=== PATIENT | male | born 1965 | race Two or more races ===

== ENCOUNTER 2018-01-24 08:45 | Emergency (ER) | payer MEDICAID ==
--- NOTE | 2018-01-24 09:47 | EDPHY ---
General Time Seen by Provider: 01/24/18 09:38 Narrative: CHIEF COMPLAINT: right leg pain HISTORY OF PRESENT ILLNESS: Patient complains of pain in his right lower extremity at his surgical site. 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 He has had ongoing problems with wounds of the surgical stump. He says that over the past week he has had increasing pain in the sites of wound. Rated as a 10/10 at times. He has also had bleeding from the wounds. Difficulty using his prosthetic due to pain and bleeding. He has had no fever. No chills. He has a significant history for right lower extremity osteomyelitis. He was diagnosed and treated at [facility] in the part december. This was inpatient for several days and then discharged home on the . He return to them on the 05 of January due to inability to tolerate his medications. He was admitted for 24 hr discharged home on doxycycline. He has been taking this as prescribed the entire time since January 05. He feels this is more related to the wound and not infection. He also has right knee pain itself. Difficulty using the prosthetic from this. No radiating pain. No numbness. No other associated complaints or modifying factors. REVIEW OF SYSTEMS: Ten systems reviewed and are negative unless otherwise noted in the HPI PCP: Teresa Peterson SPECIALISTS: Wound care Dr. Coyne PAST MEDICAL HISTORY: Insulin-dependent diabetic, dyslipidemia, anxiety, depression PAST SURGICAL HISTORY: Right BKA July 2017 at [facility] SOCIAL HISTORY: Nonsmoker. Currently homeless. FAMILY HISTORY: Noncontributory EXAMINATION General Appearance: Alert, no distress. Well-developed well-nourished. Head: normocephalic, atraumatic Eyes: Pupils equal and round, no conjunctival pallor or injection ENT, Mouth: Mucous membranes moist Neck: Normal inspection, supple, non-tender Respiratory: Lungs are clear to auscultation. No wheezing, rhonchi or crackles Cardiovascular: Regular rate and rhythm. No murmur. Radial pulses symmetric. Left DP pulses 2+. There is a palpable right popliteal pulse. Good signs of perfusion to the right BKA stump. Gastrointestinal: Abdomen is soft and nontender Back: non-tender, no bony abnormalities Neurological: A&O, nonfocal, strength is symmetric in the upper extremities. Light sensation is symmetric to the lower portion of the extremities. Skin: Warm and dry, no rash. There is a well-healed surgical incision on the right BKA stump. There are 2 areas of diabetic ulceration. The 1st is laterally measuring 3 cm. No desquamation. No cellulitis. No fluctuance or necrosis. There is a smaller dependent area to the medial side of the BKA stump. This is less than 2 cm. No signs of infection. Extremities: Tenderness of the right BKA stump over the ulcerations. Psychiatric: Mood and affect normal DIFFERENTIAL DIAGNOSES: Including but not limited to osteomyelitis, cellulitis, stasis ulcer, diabetic ulcer, chronic wound MDM: 9:45 a.m. Pain in right lower extremity and area of BKA surgical site. He does have small areas of wound that do appear painful but do not appear to be infected. I do not appreciate any cellulitis or abscess. There is no necrosis, dehiscence or crepitus. The remainder of the extremities intact without signs of infection. His vital signs are within normal limits. We are currently obtaining his recent medical record. We are providing pain medication. I have ordered laboratory studies and x-rays of the leg. I have a very low clinical suspicion for infection, even less so for osteomyelitis. Patient will likely need assistance with wound care. Case management has been involved. 10:25 a.m. Notified by RN that the patient is reporting that he has had no relief of his pain. At this time he does not have an IV, so I have ordered intramuscular morphine for pain. 10:45 a.m. Notified of patient's blood to for rejected. IV was then successfully placed in the now has access. We will switch the intramuscular morphine 2 IV. His labs are now currently pending. 11:00 a.m. I reviewed the case with Dr. Rodríguez. 11:30 a.m. I have reviewed the recent hospital notes from patient's stay at [facility]. There are 36 pages of documentation from his most recent stay. He was diagnosed with osteomyelitis. He was treated for several days with IV vancomycin and changed to doxycycline due to intolerance to the medication. He was discharged home on doxycycline and has been taking this twice daily as prescribed. He has the remainder of the prescription in hand. He does have some ulceration of the BKA stump, but no signs of cellulitis, osteomyelitis or abscess. His x-ray is unremarkable. His vital signs were well within normal limits with no evidence of SIRS or sepsis. He is not vomiting or acutely ill otherwise. I do feel he is stable for discharge home. We will provide crutches for him as he has difficulty wearing has prosthetic. Will provide wound care here. He informs me that he has wound care follow up with Dr. Coyne in 2 weeks. He will contact her to expedite his visit. He will follow up at [facility] as previously instructed. He will return here for any worsening symptoms, fever or intolerance of medications. He is comfortable with this plan and discharged home stable condition. SUPERVISION: Patient was independently examined, but I discussed the case with my secondary supervising physician Dr. Rodríguez - Diagnostics Imaging Results: Imaging Impressions Knee X-Ray 01/24/18 09:47 Impression: No evidence for osteomyelitis involving the BK amputation stump. - History Smoking Status: Never smoked - Objective Vital Signs: Initial Vital Signs Temperature (C) 97.7 F 01/24/18 08:50 Heart Rate 97 01/24/18 08:50 Respiratory Rate 20 01/24/18 08:50 Blood Pressure 127/75 H 01/24/18 08:50 O2 Sat (%) 95 01/24/18 08:50 O2 Delivery Mode Room Air Allergies/Adverse Reactions: No Known Allergies Allergy (Unverified 01/24/18 08:49) Home Medications: Medication Instructions Recorded Aspirin 06/01/16 Cephalexin [Keflex] 750 mg PO 06/01/16 Humalog 06/01/16 Hydrocodone/Acetaminophen [[place] 1 - 2 tab PO Q4H PRN 06/01/16 5/325 (*)] Insulin Glargine [Lantus 100 06/01/16 UNITS/ML (*)] LORazepam [Ativan] 0.5 mg PO 06/01/16 Plavix 06/01/16 Simvastatin 06/01/16 Fish Oil 08/19/16 Levemir 08/19/16 Melatonin 08/19/16 VENLAFAXINE HCL 08/19/16 oxyCODONE HCL/ACETAMINOPHEN 1 each PO Q4-6PRN PRN #11 tablet 01/24/18 [Percocet 5-325 mg Tablet] Laboratory Results: Laboratory Results 01/24/18 10:42 01/24/18 10:42 01/24/18 01/24/18 01/24/18 10:42 10:42 10:10 WBC 11.63 10^3/uL H 10^3/uL (3.80-9.50) RBC 4.56 10^6/uL 10^6/uL (4.40-6.38) Hgb 13.1 g/dL L g/dL (13.7-17.5) Hct 39.4 % L % (40.0-51.0) MCV 86.4 fL fL (81.5-99.8) MCH 28.7 pg pg (27.9-34.1) MCHC 33.2 g/dL g/dL (32.4-36.7) RDW 13.4 % % (11.5-15.2) Plt Count 303 10^3/uL 10^3/uL (150-400) MPV 10.6 fL fL (8.7-11.7) Neut % (Auto) 77.9 % H % (39.3-74.2) Lymph % (Auto) 15.1 % % (15.0-45.0) [place] % (Auto) 4.5 % % (4.5-13.0) Eos % (Auto) 1.6 % % (0.6-7.6) Baso % (Auto) 0.4 % % (0.3-1.7) Nucleat RBC Rel Count 0.0 % % (0.0-0.2) Absolute Neuts (auto) 9.05 10^3/uL H 10^3/uL (1.70-6.50) Absolute Lymphs (auto) 1.76 10^3/uL 10^3/uL (1.00-3.00) Absolute Monos (auto) 0.52 10^3/uL 10^3/uL (0.30-0.80) Absolute Eos (auto) 0.19 10^3/uL 10^3/uL (0.03-0.40) Absolute Basos (auto) 0.05 10^3/uL 10^3/uL (0.02-0.10) Absolute Nucleated RBC 0.00 10^3/uL 10^3/uL (0-0.01) Immature Gran % 0.5 % % (0.0-1.1) Immature Gran # 0.06 10^3/uL 10^3/uL (0.00-0.10) ESR 26 MM/HR H MM/HR (0-20) Sodium 138 mEq/L mEq/L REJ (135-145) Potassium 4.6 mEq/L mEq/L REJ (3.5-5.2) Chloride 99 mEq/L mEq/L REJ (97-110) Carbon Dioxide 25 mEq/l mEq/l REJ (22-31) Anion Gap 14 mEq/L mEq/L REJ (8-16) BUN 20 mg/dL mg/dL REJ (7-23) Creatinine 0.7 mg/dL mg/dL REJ (0.7-1.3) Estimated GFR > 60 REJ Glucose 248 mg/dL H mg/dL REJ (70-100) Calcium 9.0 mg/dL mg/dL REJ (8.5-10.4) C-Reactive Protein 8.4 mg/L mg/L REJ (<10.0) 01/24/18 10:10 WBC REJ RBC TNP Hgb TNP Hct TNP MCV TNP MCH TNP MCHC TNP RDW TNP Plt Count TNP MPV TNP Neut % (Auto) TNP Lymph % (Auto) TNP [place] % (Auto) TNP Eos % (Auto) TNP Baso % (Auto) TNP Nucleat RBC Rel Count TNP Absolute Neuts (auto) TNP Absolute Lymphs (auto) TNP Absolute Monos (auto) TNP Absolute Eos (auto) TNP Absolute Basos (auto) TNP Absolute Nucleated RBC TNP Immature Gran % TNP Immature Gran # TNP ESR TNP Sodium Potassium Chloride Carbon Dioxide Anion Gap BUN Creatinine Estimated GFR Glucose Calcium C-Reactive Protein Medications Given: Discontinued Medications Morphine Sulfate (Morphine) 6 mg IM EDNOW ONE Stop: 01/24/18 10:26 Last Admin: 01/24/18 10:49 Dose: Not Given Morphine Sulfate (Morphine) 4 mg IVP EDNOW ONE Stop: 01/24/18 10:42 Last Admin: 01/24/18 10:47 Dose: 4 mg Oxycodone/Acetaminophen (Percocet 5/325) 2 tab PO EDNOW ONE Stop: 01/24/18 09:52 Last Admin: 01/24/18 09:58 Dose: 2 tab Departure - Departure Disposition: Home, Routine, Self-Care Clinical Impression: Diabetic ulcer of lower leg Osteomyelitis Qualifiers: Osteomyelitis type: unspecified type Osteomyelitis location: unspecified site Qualified Code(s): M86.9 - Osteomyelitis, unspecified Condition: Good Instructions: Osteomyelitis (ED), Diabetes and Your Skin (ED), Chronic Wounds ( ED), Acute Wounds (ED) Additional Instructions: 1. Continue your previously prescribed antibiotics to completion 2. Pain medication as prescribed as needed 3. Recommend close monitoring of blood glucose with your scheduled an insulin sliding schedule dosing. 4. Recommend follow up with Teresa for tighter glucose management 5. ED precautions for worsening pain, fever, dehiscence of the wound, bleeding, purulence Referrals: Suly Lima PA [Primary Care Provider] - As per Instructions [facility] [Clinic] - As per Instructions Prescriptions: oxyCODONE HCL/ACETAMINOPHEN [Percocet 5-325 mg Tablet] 1 each PO Q4-6PRN PRN # 11 tablet PRN Reason: Pain, Breakthrough
[2018-01-24] MEDS ORDERED: OXYCODONE/APAP 5/325 TAB PO ONE (09:51)
[2018-01-24 10:51] LABS: PLATELET COUNT 303 10^3/uL (150-400)
[2018-01-24 12:18] VITALS: BP 128/78
--- NOTE | 2018-01-24 13:41 | ASMTCMCOM ---
CM Note CM Note Notes: Patient presents to the ER with c/o pain and difficulty ambulating with his RLE and prosthetic (see ER report for details). I have met with patient who is accompanied by a friend that brought him to the hospital. Patient explains that he is currently staying in the [facility] and entered through the coordinated entry program. His PCP is Dr. Suly Davila with [facility] in [place] and his next appointment is scheduled in January. In addition, patient states that he sees Dr. Coyne in [place] for his wound care needs related to his R leg and prosthetic. He has a scheduled appointment with Dr. Coyne on February 06, 2018 Patient was given a prescription for pain medication and has been instructed to follow up with his PCP for follow up and/or any refills. Date Signed: 01/24/2018 01:40 PM Electronically Signed By:Susie Douglas RN
== END 2018-01-24 12:18 | disposition home or self-care (01) ==
DX: E11.622 Type 2 diabetes mellitus with other skin ulcer (principal); M86.9 Osteomyelitis, unspecified; L97.919 Non-pressure chronic ulcer of unspecified part of right lower leg with unspecified severity; Z79.82 Long term (current) use of aspirin; Z79.4 Long term (current) use of insulin
CPT/HCPCS: 96374; J2270

== ENCOUNTER 2018-07-23 17:27 | Emergency (ER) | payer SELFPAY ==
--- NOTE | 2018-07-23 17:36 | EDPHY ---
H & P Stated Complaint: Fatigue Time Seen by Provider: 07/23/18 17:36 HPI/ROS: CHIEF COMPLAINT: Fatigue HISTORY OF PRESENT ILLNESS: The patient is a homeless type 1 diabetic who presents to the ED with a 1 day history of fatigue and reported slight confusion. The patient reports he has had slightly elevated blood sugars over the past several days. Past medical history is significant for a recent hospitalization at [facility] for a left foot ulcer. The patient also had a myocardial infarction approximately 2 months ago and is status post a stent in his heart as well as his left leg. The patient denies any chest pain. He did have some slight discomfort in his left shoulder earlier today. REVIEW OF SYSTEMS: A comprehensive 10 point review of systems is otherwise negative aside from elements mentioned in the history of present illness. Source: Patient Exam Limitations: No limitations - Personal History Tetanus Vaccine Date: < 10 years - Medical/Surgical History Hx Asthma: No Hx Chronic Respiratory Disease: No Hx Diabetes: Yes Hx Cardiac Disease: No Hx Renal Disease: No Hx Cirrhosis: No Hx Alcoholism: No Hx HIV/AIDS: No Hx Splenectomy or Spleen Trauma: No Other PMH: Type1 DM, hyperlipidemia, anxiety, right BKA - Social History Smoking Status: Never smoked - Physical Exam Exam: General Appearance: Alert, no distress Eyes: Pupils equal and round no pallor or injection ENT, Mouth: Mucous membranes moist Respiratory: There are no retractions, lungs are clear to auscultation Cardiovascular: Regular rate and rhythm Gastrointestinal: Abdomen is soft and nontender, no masses, bowel sounds normal Neurological: A&O, normal motor function, normal sensory exam, normal cranial nerves Skin: Warm and dry, no rashes Musculoskeletal: Neck is supple nontender Extremities: Right BKA, left lower extremity demonstrates a chronic lateral right foot ulcer without evidence of an active infection Psychiatric: Patient is oriented X 3, there is no agitation Constitutional: Initial Vital Signs Temperature (C) 36.6 C 07/23/18 17:32 Heart Rate 79 07/23/18 17:32 Respiratory Rate 18 07/23/18 17:32 Blood Pressure 106/59 L 07/23/18 17:32 O2 Sat (%) 96 07/23/18 17:32 O2 Delivery Mode Room Air Allergies/Adverse Reactions: No Known Allergies Allergy (Unverified 01/24/18 08:49) Home Medications: Medication Instructions Recorded Aspirin 06/01/16 Humalog 06/01/16 Insulin Glargine [Lantus 100 06/01/16 UNITS/ML (*)] Plavix 06/01/16 Simvastatin 06/01/16 Levemir 08/19/16 VENLAFAXINE HCL 08/19/16 Medical Decision Making - Diagnostics EKG Interpretation: EKG: Complete interpretation has been separately recorded in the [email or web address]ster archive. Summary impression: Sinus rhythm, rate 73 evidence of old inferior infarct, no ST segment elevation. ED Course/Re-evaluation: The patient presents to the ED with vague symptoms of feeling fatigued. He has no chest pain, shortness of breath, fever, cough or congestion. The patient does have a slightly elevated blood sugar but no evidence of diabetic ketoacidosis. The patient also had slight dehydration with a mildly elevated creatinine of 1.8. Patient was treated with IV fluid rehydration. I reviewed the patient's workup in the emergency department. At this point time I do feel his symptoms are likely consistent with mild dehydration. The patient will increase his fluid intake. I have asked him to follow up with his primary care provider in a week for a creatinine recheck. The patient will be discharged home with instructions to return to the ED for markedly worsening symptoms or other concerns. He has no evidence of acute coronary syndrome or evidence of a significant metabolic derangement in the emergency department. He has no clinical evidence of significant infection. Differential Diagnosis: Differential diagnosis considered includes acute coronary syndrome, dehydration , infection, diabetic ketoacidosis - Data Points Laboratory Results: Laboratory Results 07/23/18 Unknown 07/23/18 17:38 07/23/18 07/23/18 07/23/18 Unknown 18:00 17:38 WBC 10.41 10^3/uL H 10^3/uL (3.80-9.50) RBC 4.03 10^6/uL L 10^6/uL (4.40-6.38) Hgb 11.9 g/dL L g/dL (13.7-17.5) Hct 34.2 % L % (40.0-51.0) MCV 84.9 fL fL (81.5-99.8) MCH 29.5 pg pg (27.9-34.1) MCHC 34.8 g/dL g/dL (32.4-36.7) RDW 13.4 % % (11.5-15.2) Plt Count 306 10^3/uL 10^3/uL (150-400) MPV 10.8 fL fL (8.7-11.7) Neut % (Auto) 74.9 % H % (39.3-74.2) Lymph % (Auto) 16.8 % % (15.0-45.0) [place] % (Auto) 6.6 % % (4.5-13.0) Eos % (Auto) 0.9 % % (0.6-7.6) Baso % (Auto) 0.4 % % (0.3-1.7) Nucleat RBC Rel Count 0.0 % % (0.0-0.2) Absolute Neuts (auto) 7.80 10^3/uL H 10^3/uL (1.70-6.50) Absolute Lymphs (auto) 1.75 10^3/uL 10^3/uL (1.00-3.00) Absolute Monos (auto) 0.69 10^3/uL 10^3/uL (0.30-0.80) Absolute Eos (auto) 0.09 10^3/uL 10^3/uL (0.03-0.40) Absolute Basos (auto) 0.04 10^3/uL 10^3/uL (0.02-0.10) Absolute Nucleated RBC 0.00 10^3/uL 10^3/uL (0-0.01) Immature Gran % 0.4 % % (0.0-1.1) Immature Gran # 0.04 10^3/uL 10^3/uL (0.00-0.10) VBG pH Sodium 133 mEq/L L mEq/L (135-145) Potassium 4.9 mEq/L mEq/L (3.3-5.0) Chloride 96 mEq/L L mEq/L (97-110) Carbon Dioxide 22 mEq/l mEq/l (22-31) Anion Gap 15 mEq/L mEq/L (8-16) BUN 32 mg/dL H mg/dL (7-23) Creatinine 1.8 mg/dL H mg/dL (0.7-1.3) Estimated GFR 40 Glucose 305 mg/dL H mg/dL (70-100) Calcium 9.5 mg/dL mg/dL (8.5-10.4) POC Troponin I 0.01 ng/mL ng/mL (0.00-0.08) 07/23/18 17:30 WBC RBC Hgb Hct MCV MCH MCHC RDW Plt Count MPV Neut % (Auto) Lymph % (Auto) [place] % (Auto) Eos % (Auto) Baso % (Auto) Nucleat RBC Rel Count Absolute Neuts (auto) Absolute Lymphs (auto) Absolute Monos (auto) Absolute Eos (auto) Absolute Basos (auto) Absolute Nucleated RBC Immature Gran % Immature Gran # VBG pH 7.33 (7.31-7.42) Sodium Potassium Chloride Carbon Dioxide Anion Gap BUN Creatinine Estimated GFR Glucose Calcium POC Troponin I Medications Given: Discontinued Medications Sodium Chloride (Ns) 1,000 mls @ 0 mls/hr IV EDNOW ONE; Wide Open PRN Reason: Protocol Stop: 07/23/18 18:22 Last Admin: 07/23/18 18:33 Dose: 1,000 mls Point of Care Test Results: Chemistry 07/23/18 18:00 POC Troponin I 0.01 ng/mL ng/mL (0.00-0.08) Departure - Departure Disposition: Home, Routine, Self-Care Clinical Impression: Fatigue, Dehydration Condition: Good Instructions: Dehydration (ED) Additional Instructions: 1. Please try and increase your fluid intake as mild dehydration likely contributed to your symptoms today. 2. Please schedule a [facility] for a recheck of your kidney function in 1 week. 3. Please return to the ED for markedly worsening symptoms, fever, chest pain, difficulty breathing, increased pain, redness or other concerns. Referrals: [facility],. [Clinic] - As per Instructions
[2018-07-23 18:01] LABS: PLATELET COUNT 306 10^3/uL (150-400)
[2018-07-23] MEDS ORDERED: NS 1,000 ML IV ONE (18:21)
[2018-07-23] MEDS: NS 1,000 ML IV ONE ×3 (18:33→19:17)
--- NOTE | 2018-07-23 18:51 | CPEKG ---
Test Reason : OPEN Blood Pressure : / mmHG Vent. Rate : 073 BPM Atrial Rate : 073 BPM P-R Int : 123 ms QRS Dur : 093 ms QT Int : 401 ms P-R-T Axes : 014 000 -19 degrees QTc Int : 442 ms Sinus rhythm Inferior infarct, age indeterminate Confirmed by Joseph Brice ([id number]) on 07/23/2018 6:51:02 PM Referred By: Confirmed By:Joseph Brice
[2018-07-23 19:51] VITALS: BP 132/70
== END 2018-07-23 19:49 | disposition home or self-care (01) ==
LOC: EDUNIT#
DX: E86.0 Dehydration (principal); E10.621 Type 1 diabetes mellitus with foot ulcer; I25.2 Old myocardial infarction; Z95.5 Presence of coronary angioplasty implant and graft; Z79.4 Long term (current) use of insulin; Z59.0 Homelessness
CPT/HCPCS: 84484-PO